=== PATIENT | male | born 1995 | race African-American/Black ===

== ENCOUNTER 2016-11-11 18:45 | Emergency (ER) | payer OTHER ==
[~2016-11-11] VITALS: Ht 180.3 cm; Wt 86.0 kg
[~2016-11-11 18:45] MED LIST: ZOFR4TAB3 SL
[2016-11-11 18:50] VITALS: BP 134/74; PULSE 84; RESP 20; TEMP 99; O2SAT 100
--- NOTE | 2016-11-11 18:52 | PD ---
Physical Exam Date Seen by Provider: November 11, 2016 Time Seen by Provider: 18:50 Narrative 21 YOBM C/O ABSCESS R BUTTOCK. NO F/C. NO N/V. NO DRAINAGE. H/O ABSCESS VSS wating for bed asignment [facility] Medical Record Reviewed: No Supervised Visit with LIVAN: Addison Card November 11, 2016 18:52
--- NOTE | 2016-11-11 18:54 | PD ---
HPI . bump on right buttocks x 1 week Chief Complaint: Lump, Cyst, Hernia Time Seen by Provider: 18:54 Travel History International Travel<30 days: No Contact w/Intl Traveler<30days: No Traveled to known affect area: No History of Present Illness HPI 21-year-old male who has had a history one "risen" is here with complaints of a lump on the right inside of his butt cheek that has been present for over a week. Patient says that he's been using butt paste [id number] to try to treat the area. He says he also has been sitting in some hot water. He says that it's really not hurting, but he decided to come to the emergency department to get an evaluation. He denies any pain. He says it has never turned into an abscess and did not have any type of head formation. He was hoping for some type of solution for his small lump. He denies any fever or chills. He is from [place] at [facility] and does not have a primary care locally. [facility] Past Medical History Immunizations Current: Yes Past Surgical History Other Surgery: Yes (KIDNEY SURGERY CHILD) Social History Alcohol Use: Yes (SOCIALLY) Tobacco Use: Yes (1 PK PER WEEK) Substance Use: No Allergies-Medications (Allergen,Severity, Reaction): Coded Allergies: No Known Allergies (Unverified , 06/22/15) Reported Meds & Prescriptions Reported Meds & Active Scripts Active Zofran ODT (Ondansetron HCl) 4 Mg Tab 4 Mg SL Q6HR PRN FOR NAUSEA/VOMITING Review of Systems General / Constitutional: No: Fever Eyes: No: Visual changes HENT: No: Headaches Cardiovascular: No: Chest Pain or Discomfort Respiratory: No: Shortness of Breath Gastrointestinal: No: Abdominal Pain Genitourinary: No: Dysuria Musculoskeletal: No: Pain Skin: Positive Lesions, No Rash Neurologic: No: Weakness Psychiatric: No: Depression Endocrine: No: Polydipsia Hematologic/Lymphatic: No: Easy Bruising Physical Exam Narrative GENERAL: AAO x 3, no acute distress, Well-nourished, well-developed patient. SKIN: Warm and dry. No visible rashes or bruising. HEAD: Normocephalic and atraumatic. EYES: No scleral icterus. No injection or drainage. ENT: No nasal drainage noted. Mucous membranes pink. Airway patent. NECK: Supple, trachea midline. No JVD. CARDIOVASCULAR: Regular rate and rhythm without murmurs, gallops, or rubs. RESPIRATORY: Breath sounds equal bilaterally. No accessory muscle use. No rhonchi or rales. GASTROINTESTINAL: Visual inspection normal RECTAL: Elbert furniture repair technician present: small 0.3 cm indurated area without any fluctuance, erythema, warmth. No cellulitis or abscess present. EXTREMITIES: No cyanosis or edema. BACK: Nontender without obvious deformity. No CVA tenderness. PSYCH: AAO x 3, normal affect. Data Data Last Documented VS Vital Signs Date Time Temp Pulse Resp B/P Pulse Ox O2 Delivery O2 Flow Rate FiO2 11/11/16 18:50 99.0 84 20 134/74 100 Room Air MDM Medical Decision Making Medical Screen Exam Complete: Yes Emergency Medical Condition: Yes Medical Record Reviewed: Yes Differential Diagnosis papule, less likely cellulitis, less likely abscess Narrative Course 21-year-old male who has had a history one "risen" is here with complaints of a lump on the right inside of his butt cheek that has been present for over a week. Patient says that he's been using butt paste [id number] to try to treat the area. He says he also has been sitting in some hot water. He says that it's really not hurting, but he decided to come to the emergency department to get an evaluation. He denies any pain. He says it has never turned into an abscess and did not have any type of head formation. He was hoping for some type of solution for his small lump. He denies any fever or chills. He is from [place] at [facility] and does not have a primary care locally. Patient seen and examined. He has a small papule on his right inner buttocks. This is not infected, inflamed or an abscess. I've explained to him that unfortunately there is not much that I recommend for this. I've advised him if this is a problem for him and his life, that he will need to see a mill attendant to see if they can somehow surgically excise this area. I truly believe that it will subside with time. I do not recommend antibiotics. He does not have any pain or discomfort, therefore I do not recommend any type of pain medications or anti-inflammatories. This is not an abscess so incision and drainage also not required. Recommend f/u with PCP and derm. Diagnosis Primary Impression: Papule of skin Patient Instructions: General Instructions Additional Instructions: You can try to use warm compresses to the area to see if a head develops. If it does, you can come back to the emergency department to have it drained. Please return to emergency department if your symptoms return or worsen. Follow up with your primary care provider. Disposition: 01 DISCHARGE HOME Condition: Stable Winter De Paz November 11, 2016 18:54
== END 2016-11-11 19:22 | disposition home or self-care (01) ==
LOC: NEPK 18:45
DX: R23.8 Other skin changes (principal); F17.210 Nicotine dependence, cigarettes, uncomplicated
CPT/HCPCS: 99282

== ENCOUNTER 2017-03-07 11:18 | Emergency (ER) | payer OTHER ==
[~2017-03-07] VITALS: Ht 180.3 cm; Wt 88.0 kg
[2017-03-07 11:19] VITALS: BP 141/76; PULSE 84; RESP 14; TEMP 100.4; O2SAT 99
[2017-03-07] MEDS ORDERED: IBUPROFEN 800 MG TAB PO ONE (11:45)
--- NOTE | 2017-03-07 11:45 | PD ---
HPI Chief Complaint: ENT Complaint Time Seen by Provider: 11:25 Travel History International Travel<30 days: No Contact w/Intl Traveler<30days: No Traveled to known affect area: No History of Present Illness HPI 21-year-old male presents for evaluation of sore throat and fever. Symptoms started yesterday. It hurts to swallow. No alleviating factors. He has not tried using any [id number] medication for symptom relief. He endorses a slight cough. Denies congestion, rash, recent travel. No sick contacts. No significant past medical history. No other complaints. [facility] Past Medical History Immunizations Current: Yes Past Surgical History Other Surgery: Yes (KIDNEY SURGERY CHILD) Social History Alcohol Use: Yes (SOCIALLY) Tobacco Use: Yes (1 PK PER WEEK) Substance Use: No Allergies-Medications (Allergen,Severity, Reaction): Coded Allergies: No Known Allergies (Unverified , 03/07/17) Reported Meds & Prescriptions Reported Meds & Active Scripts Active No Active Prescriptions or Reported Medications Review of Systems Except as stated in HPI: all other systems reviewed are Neg Physical Exam Narrative GENERAL: Well-developed well-nourished female in no acute distress SKIN: Warm and dry. HEAD: Atraumatic. Normocephalic. EYES: Pupils equal and round. No scleral icterus. No injection or drainage. ENT: No nasal bleeding or discharge. Mucous membranes pink and moist. There is also injury erythema without exudate. NECK: Trachea midline. No JVD. There is no lymphadenopathy. Neck supple for range of motion CARDIOVASCULAR: Regular rate and rhythm. No murmur appreciated. RESPIRATORY: No accessory muscle use. Clear to auscultation. Breath sounds equal bilaterally. GASTROINTESTINAL: Abdomen soft, non-tender, nondistended. Hepatic and splenic margins not palpable. MUSCULOSKELETAL: No obvious deformities. No clubbing. No cyanosis. No edema. NEUROLOGICAL: Awake and alert. No obvious cranial nerve deficits. Motor grossly within normal limits. Normal speech. PSYCHIATRIC: Appropriate mood and affect; insight and judgment normal. Data Data Last Documented VS Vital Signs Date Time Temp Pulse Resp B/P (MAP) Pulse Ox O2 Delivery O2 Flow Rate FiO2 03/07/17 11:25 18 03/07/17 11:19 100.4 84 141/76 (97) 99 Orders Orders Ibuprofen (Motrin) (03/07/17 11:45) Group A Rapid Strep Screen (03/07/17 11:38) Strep Culture (Group A) (03/07/17 11:40) MDM Medical Decision Making Medical Screen Exam Complete: Yes Emergency Medical Condition: Yes Medical Record Reviewed: Yes Differential Diagnosis Pharyngitis, tonsillitis, peritonsillar abscess, infectious mononucleosis, herpangina, epiglottitis, retropharyngeal abscess Narrative Course 21-year-old male here with sore throat and low-grade fevers. He appears well. He does have a low-grade fever. He has oral pharyngeal erythema without exudate , no peritonsillar abscess. A rapid strep screen was performed and it was negative. He was given a dose of ibuprofen. He is stable for discharge. Diagnosis Primary Impression: Pharyngitis Qualified Codes: J02.9 - Acute pharyngitis, unspecified Additional Instructions: Take Tylenol or Motrin for pain per dosing instructions on the bottle. Stay well hydrated well-nourished, get plenty of rest. Return for any acutely new or worsening symptoms. Med/Other Pt SpecificInfo: No Change to Meds Scripts No Active Prescriptions or Reported Meds Disposition: 01 DISCHARGE HOME Condition: Stable Javier Tompkins Mar 07, 2017 11:45
[2017-03-07 13:29] VITALS: BP 119/58
== END 2017-03-07 13:35 | disposition home or self-care (01) ==
LOC: NEPD 11:18
DX: J02.9 Acute pharyngitis, unspecified (principal); R50.9 Fever, unspecified; F17.200 Nicotine dependence, unspecified, uncomplicated
CPT/HCPCS: 87081; 87880; 99283

== ENCOUNTER 2017-06-04 12:27 | Emergency (ER) | payer OTHER ==
[~2017-06-04] VITALS: Ht 180.3 cm; Wt 75.0 kg
[2017-06-04 12:29] VITALS: BP 121/87; PULSE 104; RESP 18; TEMP 98.1; O2SAT 100
[2017-06-04] MEDS ORDERED: SODIUM CHLOR 0.9% 1000 ML INJ 1,000 ML IV SCH (14:56)
[2017-06-04] MEDS ORDERED: ONDANSETRON HCL 4 MG/2 ML VIAL IVP ONE (15:00)
[2017-06-04] MEDS ORDERED: DIPHENOXYLATE/ATROPINE 2.5 MG/0.025 MG TAB PO ONE (15:00)
[2017-06-04] MEDS ORDERED: SODIUM CHLORIDE 0.9% FLUSH 10 ML FLUSH IV FLUSH PRN (15:00)
--- NOTE | 2017-06-04 15:01 | PD ---
HPI Chief Complaint: Cold / Flu Symptoms Time Seen by Provider: 14:50 Travel History International Travel<30 days: No Contact w/Intl Traveler<30days: No Traveled to known affect area: No History of Present Illness HPI 22-year-old male complains of persistent diarrhea. Patient states that the symptoms started a week ago. Patient denies any blood or mucus in the stool. Patient denies any history of recent travel outside the country. Patient denies any recent seafood consumption. Patient denies any fever chills. Patient states that he has poor appetite for the past week. Patient denies abdominal pain. Patient denies any coughing congestion. PFSH Past Medical History Medical History: Denies Significant Hx Immunizations Current: Yes Past Surgical History Other Surgery: Yes (KIDNEY SURGERY CHILD) Social History Alcohol Use: Yes (SOCIALLY) Tobacco Use: Yes (1 PK PER WEEK) Substance Use: No Allergies-Medications (Allergen,Severity, Reaction): Coded Allergies: No Known Allergies (Unverified Adverse Reaction, Unknown, 06/04/17) Reported Meds & Prescriptions Reported Meds & Active Scripts Active No Active Prescriptions or Reported Medications Review of Systems General / Constitutional: No: Fever Eyes: No: Visual changes HENT: No: Headaches Cardiovascular: No: Chest Pain or Discomfort Respiratory: No: Shortness of Breath Gastrointestinal: Positive: Diarrhea Genitourinary: No: Dysuria Musculoskeletal: No: Pain Skin: No Rash Neurologic: No: Weakness Psychiatric: No: Depression Endocrine: No: Polydipsia Hematologic/Lymphatic: No: Easy Bruising Physical Exam Narrative GENERAL: Well-nourished, well-developed patient. SKIN: Focused skin assessment warm/dry. HEAD: Normocephalic. EYES: No scleral icterus. No injection or drainage. Mucous membrane is dry. NECK: Supple, trachea midline. No JVD or lymphadenopathy. CARDIOVASCULAR: Regular rate and rhythm without murmurs, gallops, or rubs. RESPIRATORY: Breath sounds equal bilaterally. No accessory muscle use. GASTROINTESTINAL: Abdomen soft, non-tender, nondistended. MUSCULOSKELETAL: No cyanosis, or edema. BACK: Nontender without obvious deformity. No CVA tenderness. Neurologic exam normal. Data Data Last Documented VS Vital Signs Date Time Temp Pulse Resp B/P (MAP) Pulse Ox O2 Delivery O2 Flow Rate FiO2 06/04/17 16:50 99.4 79 16 132/76 (94) 99 Room Air Orders Orders Complete Blood Count With Diff (06/04/17 14:56) Comprehensive Metabolic Panel (06/04/17 14:56) Iv Access Insert/Monitor (06/04/17 14:56) Ecg Monitoring (06/04/17 14:56) Ondansetron Inj (Zofran Inj) (06/04/17 15:00) Sodium Chlor 0.9% 1000 Ml Inj (Ns 1000 M (06/04/17 14:56) Sodium Chloride 0.9% Flush (Ns Flush) (06/04/17 15:00) Diphenoxylate/Atropine Tab (Lomotil Tab) (06/04/17 15:00) Labs Laboratory Tests Test 06/04/17 15:07 White Blood Count 7.7 TH/MM3 Red Blood Count 5.90 MIL/MM3 Hemoglobin 17.0 GM/DL Hematocrit 50.7 % Mean Corpuscular Volume 85.9 FL Mean Corpuscular Hemoglobin 28.8 PG Mean Corpuscular Hemoglobin Concent 33.5 % Red Cell Distribution Width 15.5 % Platelet Count 269 TH/MM3 Mean Platelet Volume 8.3 FL Neutrophils (%) (Auto) 62.1 % Lymphocytes (%) (Auto) 22.3 % Monocytes (%) (Auto) 15.0 % Eosinophils (%) (Auto) 0.3 % Basophils (%) (Auto) 0.3 % Neutrophils # (Auto) 4.8 TH/MM3 Lymphocytes # (Auto) 1.7 TH/MM3 Monocytes # (Auto) 1.2 TH/MM3 Eosinophils # (Auto) 0.0 TH/MM3 Basophils # (Auto) 0.0 TH/MM3 CBC Comment DIFF FINAL Differential Comment Blood Urea Nitrogen 21 MG/DL Creatinine 1.00 MG/DL Random Glucose 83 MG/DL Total Protein 9.1 GM/DL Albumin 3.6 GM/DL Calcium Level 9.7 MG/DL Alkaline Phosphatase 68 U/L Aspartate Amino Transf (AST/SGOT) 21 U/L Alanine Aminotransferase (ALT/SGPT) 11 U/L Total Bilirubin 0.4 MG/DL Sodium Level 132 MEQ/L Potassium Level 3.8 MEQ/L Chloride Level 96 MEQ/L Carbon Dioxide Level 26.9 MEQ/L Anion Gap 9 MEQ/L Estimat Glomerular Filtration Rate 112 ML/MIN MDM Medical Decision Making Medical Screen Exam Complete: Yes Emergency Medical Condition: Yes Interpretation(s) 1702 p.m. CBC within normal limit. Sodium 132. BUN 21. Differential Diagnosis Differential diagnosis including gastroenteritis, dehydration, electrolyte imbalance. Narrative Course 22-year-old male with persistent diarrhea and poor appetite. Normal saline solution 1 L IV bolus. Lomotil one tablet by mouth given. Diagnosis Primary Impression: Gastroenteritis Patient Instructions: General Instructions Additional Instructions: Take medications as directed. Follow-up with personal physician. Return if persistent problem or worse. Med/Other Pt SpecificInfo: Prescription(s) given Scripts Diphenoxylate-Atropine (Lomotil) 2.5-0.025 Mg Tab 1 TAB PO Q6H Y for DIARRHEA, #12 TAB 0 Refills Prov: Rhett Ron MD 06/04/17 Disposition: 01 DISCHARGE HOME Condition: Stable Rhett Ron MD Jun 04, 2017 15:01
[2017-06-04 15:26] LABS: AUTOMATED NEUTROPHIL # 4.8 TH/MM3 (1.8-7.7); BASOPHIL % 0.3 % (0.0-2.0); EOSINOPHIL % 0.3 % (0.0-4.0); HEMATOCRIT 50.7 % (39.0-51.0); HEMO FLAGS DIFF FINAL; LYMPH % 22.3 % (9.0-44.0); LYMPHOCYTE # 1.7 TH/MM3 (1.0-4.8); MEAN CELL VOLUME 85.9 FL (80.0-100.0); MEAN CORPUSCULAR HEMOGLOBIN 28.8 PG (27.0-34.0); MEAN CORPUSCULAR HGB CONC 33.5 % (32.0-36.0); NEUT % 62.1 % (16.0-70.0); PLATELET COUNT 269 TH/MM3 (150-450); RED CELL DISTRIBUTION WIDTH 15.5 % (11.6-17.2); WHITE BLOOD COUNT 7.7 TH/MM3 (4.0-11.0)
[2017-06-04 15:44] LABS: ANION GAP 9 MEQ/L (5-15); AST (GOT) 21 U/L (15-37); BICARBONATE 26.9 MEQ/L (21.0-32.0); BLOOD UREA NITROGEN 21 MG/DL (7-18); CHLORIDE 96 MEQ/L (98-107); GLOMERULAR FILTRATION RATE 112 ML/MIN (>89); SODIUM (NA) 132 MEQ/L (136-145)
[2017-06-04 15:46] LABS: ALKALINE PHOSPHATASE 68 U/L (45-117); ALT (GPT) 11 U/L (12-78); TOTAL BILIRUBIN ADULT 0.4 MG/DL (0.2-1.0)
[2017-06-04 15:47] LABS: POTASSIUM 3.8 MEQ/L (3.5-5.1)
[2017-06-04 16:50] VITALS: BP 132/76; PULSE 79; RESP 16; TEMP 99.4; O2SAT 99
[2017-06-04] MEDS ORDERED: LOMO2.5T PO (17:05)
[2017-06-05] MEDS ORDERED: CIPR500T2 PO (10:24)
== END 2017-06-04 17:27 | disposition home or self-care (01) ==
LOC: NEPD 12:27
DX: K52.9 Noninfective gastroenteritis and colitis, unspecified (principal); F17.200 Nicotine dependence, unspecified, uncomplicated
CPT/HCPCS: 80053; 85025; 96361; 96374; 99284; J2405; J7030

== ENCOUNTER 2017-06-05 08:51 | Emergency (ER) | payer OTHER ==
[~2017-06-05 08:51] MED LIST changes: +LOMO2.5T PO; -ZOFR4TAB3 SL
[2017-06-05 08:53] VITALS: BP 136/74; PULSE 95; RESP 18; TEMP 98.5; O2SAT 99
--- NOTE | 2017-06-05 09:52 | PD ---
HPI Chief Complaint: GI Complaint Time Seen by Provider: 09:52 Travel History International Travel<30 days: No Contact w/Intl Traveler<30days: No Traveled to known affect area: No History of Present Illness HPI 22-year-old male presents to the emergency department with concern of blood on his tissue and in his stool after wiping after a bowel movement. He's had diarrhea for 1 week. He was seen here yesterday and diagnosed with gastroenteritis. His CBC and CMP were unremarkable. The patient denies continued vomiting. Reports continued diarrhea. Denies fevers. Reports abdominal cramping prior to a bowel movement and is relieved after a bowel movement. Denies lightheadedness or dizziness. Denies rectal pain. Denies dysuria. Symptoms are mild in severity. No known relieving or aggravating factors. Has no other medical complaints. No known allergies. No other modifying factors or associated signs and symptoms. PFSH Past Medical History Immunizations Current: Yes Past Surgical History Other Surgery: Yes (KIDNEY SURGERY CHILD) Social History Alcohol Use: Yes (SOCIALLY) Tobacco Use: Yes (1 PK PER WEEK) Substance Use: No Allergies-Medications (Allergen,Severity, Reaction): Coded Allergies: No Known Allergies (Unverified Adverse Reaction, Unknown, 06/05/17) Reported Meds & Prescriptions Reported Meds & Active Scripts Active Ciprofloxacin (Ciprofloxacin HCl) 500 Mg Tab 500 Mg PO BID 7 Days Lomotil (Diphenoxylate-Atropine) 2.5-0.025 Mg Tab 1 Tab PO Q6H PRN Review of Systems Except as stated in HPI: all other systems reviewed are Neg Physical Exam Narrative GENERAL: Well-nourished, well-developed black male patient, in no acute distress ; afebrile, nontoxic-appearing SKIN: Warm and dry. HEAD: Atraumatic. Normocephalic. EYES: Pupils equal and round. No scleral icterus. No injection or drainage. ENT: Mucosa pink and moist. Airway patent. NECK: Trachea midline. CARDIOVASCULAR: Regular rate and rhythm. No murmur appreciated. RESPIRATORY: No accessory muscle use. Clear to auscultation. Breath sounds equal bilaterally. GASTROINTESTINAL: Abdomen soft, non-tender, nondistended. Hepatic and splenic margins not palpable. Bowel sounds are active 4 quadrants. No guarding. Nonrigid. RECTAL EXAM: Exam done in the presence of a nurse. No masses or tenderness, stool is loose and brown. Hemaprompt positive. No visualized external hemorrhoids. MUSCULOSKELETAL: No obvious deformities. No clubbing. No cyanosis. No edema. NEUROLOGICAL: Awake and alert. Oriented 3. No obvious cranial nerve deficits. Motor grossly within normal limits. Normal speech. PSYCHIATRIC: Appropriate mood and affect; insight and judgment normal. Data Data Last Documented VS Vital Signs Date Time Temp Pulse Resp B/P (MAP) Pulse Ox O2 Delivery O2 Flow Rate FiO2 06/05/17 08:53 98.5 95 18 136/74 (94) 99 Orders Orders C Diff Toxin Pcr (06/05/17 10:28) Ed Discharge Order (06/05/17 10:29) [facility] Medical Decision Making Medical Screen Exam Complete: Yes Emergency Medical Condition: Yes Medical Record Reviewed: Yes Differential Diagnosis Gastroenteritis, gastritis, traveler's diarrhea, C. difficile, enterovirus Narrative Course 22-year-old male with positive hemaprmpt. He was seen here yesterday and diagnosed with gastroenteritis. His CBC and CMP were unremarkable. I discussed the patient with Dr. Geronimo, my attending physician, and she recommended c-diff PCR, stool culture, and ciprofloxacin. Stool culture obtained. Ciprofloxacin prescribed for home. MaInstructed patient to follow up with primary care provider. Patient verbalizes understanding and agreement with treatment plan. Patient is medically cleared and stable for discharge. Discussed reasons to return to the emergency department. Patient agrees with treatment plan. The patients vital signs are stable and the patient is stable for outpatient follow-up and treatment. Patient discharged home, stable and in no acute distress. Diagnosis Primary Impression: Bloody diarrhea Referrals: [facility] Primary Care Physician Patient Instructions: Acute Diarrhea (ED), General Instructions Additional Instructions: Ciprofloxacin as prescribed and complete full course Follow-up with primary care provider Return to the emergency department immediately with worsening of symptoms Med/Other Pt SpecificInfo: Prescription(s) given Scripts Ciprofloxacin (Ciprofloxacin) 500 Mg Tab 500 MG PO BID for Infection for 7 Days, #14 TAB 0 Refills Prov: AnishaFrancine BAKER 06/05/17 Disposition: 01 DISCHARGE HOME Condition: Stable Francine Lancaster Jun 05, 2017 09:52
[2017-06-05] MEDS ORDERED: CIPR500T2 PO (10:24)
[2017-06-05 15:13] LABS: C. DIFF EPI 027 PRESUMPTIVE NEGATIVE (NEGATIVE)
== END 2017-06-05 11:48 | disposition home or self-care (01) ==
LOC: NEPD 08:51
DX: K92.1 Melena (principal); F17.200 Nicotine dependence, unspecified, uncomplicated
CPT/HCPCS: 87493; 99283